=== PATIENT | female | born 1970 | race Caucasian/White ===

== ENCOUNTER → 2016-12-16 | Outpatient (CLI) | payer BC, OTHER ==
[~2016-12-16] MED LIST: ASPIR 8181 M1 PO; FIORICET WI1 CAPSULE PO; MOTRIN800 MG PO; NIFEDICAL XL30 MG PO; NIFEDIPINE ER30 MG PO; PROAIR HFA8.5 GM IH; SINGULAIR10 MG PO; ZOLOFT100 MG PO; ZYRTEC10 M2 PO
== END | disposition home or self-care (01) ==
LOC: CDC 15:22
DX: Z01.810 Encounter for preprocedural cardiovascular examination (principal); D24.2 Benign neoplasm of left breast; N63 Unspecified lump in breast
CPT/HCPCS: 93000

== ENCOUNTER 2017-01-01 06:45 | Day surgery (SDC) | payer BC, OTHER ==
[~2017-01-01] VITALS: Ht 171.4 cm; Wt 74.5 kg
[~2017-01-01 06:45] MED LIST changes: +MIRENA52 MG IY
[2017-01-01 07:31] VITALS: BP 127/84
[2017-01-01 12:50] VITALS: BP 119/67
[2017-01-08 11:54] LABS: INTERNAL CONTROL VALID? YES
== END 2017-01-01 13:34 | disposition home or self-care (01) ==
LOC: SDC 06:45
PROVIDERS: Surgery Surgical Oncology
PROC: 0HBU0ZZ Excision of Left Breast, Open Approach (ICD-10-PCS; principal; 2017-01-01)
DX: D24.2 Benign neoplasm of left breast (principal); Z80.3 Family history of malignant neoplasm of breast; J45.909 Unspecified asthma, uncomplicated; R92.2 Inconclusive mammogram; N64.52 Nipple discharge; I10 Essential (primary) hypertension; K58.9 Irritable bowel syndrome, unspecified; G40.909 Epilepsy, unspecified, not intractable, without status epilepticus; Z82.79 Family history of other congenital malformations, deformations and chromosomal abnormalities; Z82.0 Family history of epilepsy and other diseases of the nervous system; Z81.8 Family history of other mental and behavioral disorders; Z80.1 Family history of malignant neoplasm of trachea, bronchus and lung; Z80.49 Family history of malignant neoplasm of other genital organs; Z87.891 Personal history of nicotine dependence; Z79.82 Long term (current) use of aspirin; Z91.09 Other allergy status, other than to drugs and biological substances
CPT/HCPCS: 84703; 88307; J0690; J2250; J2405; J3010; S0020